=== PATIENT | male | born 1965 | race Caucasian/White ===

== ENCOUNTER → 2021-07-26 | Outpatient (CLI) | payer BC ==
[2021-07-26 16:20] LABS: African American GFR (CKD) >90 (>60 ml/min/1.73 sqM); Blood Urea Nitrogen 16 mg/dL (9-20); Non-African American GFR(CKD) >90 (>60 ml/min/1.73 sqM)
--- NOTE | 2021-07-27 08:14 | CT ---
CT adrenal glands with and without contrast HISTORY: Adrenal nodule Helical acquisition obtained pre- and postadministration of 100 cc Isovue-300 IV. Patient received or al contrast. Automated exposure control performed for dose reduction. DLP 1311 mGycentimeters No comparisons available. Adrenal glands show some mild prominence bilaterally at the upper margins. There is no discrete mass identified with certainty. No abnormal enhancement. The lung bases are clear, no pleural or pericardial effusion. Degenerative disc changes are present i n the visualized spine. There is facet arthropathy in the lower lumbar spine. The liver, gallbladder, spleen, kidneys, and pancreas are within normal limits. No retroperitoneal ad enopathy. Aorta shows normal caliber. 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 There is no ascites. No evident pneumoperitoneum. IMPRESSION: There is some mild prominence of the adrenal glands as described, comparison with old exa m could be performed to assess for any interval change if available. Alternatively short interval fol low-up could be performed to assess for stability.
== END | disposition home or self-care (01) ==
LOC: RADCTMAIN 15:07
PROVIDERS: ATTEND Urology
DX: N40.1 Benign prostatic hyperplasia with lower urinary tract symptoms (principal); E29.1 Testicular hypofunction; E27.9 Disorder of adrenal gland, unspecified
CPT/HCPCS: 83835; 84153; 82533; 82565; 84520; 84403; 74170; Q9967

== ENCOUNTER → 2022-12-15 | Outpatient (CLI) | payer BC ==
--- NOTE | 2022-12-17 21:27 | MR ---
EXAMINATION TYPE: MR lumbar spine wo con DATE OF EXAM: 12/15/2022 COMPARISON: None HISTORY: Scoliosis - Stenosis - Evaluate for Surgery CONTRAST: 0 mL intravenous Gadavist. TECHNIQUE: Multiplanar, multisequence images of the lumbar spine were acquired. FINDINGS: L5-S1: There is loss of disc axis level. Mild residual disc bulge has anterior thecal sac flattening. No AP spinal canal stenosis present. Facet hypertrophy is present on the left with severe left nelly inal stenosis. Moderate right foraminal stenosis is present. L4-L5: Broad-based disc bulge is present slightly greater into the left paracentral and left lateral direction. Facet hypertrophy is present greater on the left. Moderate to severe right and severe left foraminal stenosis is present. L3-L4: There is loss of disc height at this level. Endplate changes are present compatible with Modic type changes. Facet hypertrophy is present greater on the left. Severe right and moderate to severe left foraminal stenosis is present. L2-L3: There is loss of disc height is well. Residual disc has mild bulge slightly greater in the rig ht paracentral and central region. No AP spinal canal stenosis is present. Severe right and moderate left foraminal narrowing is present. L1-L2: There is relative reservation of the disc height to this level. Minimal disc bulge has anterio r thecal sac contact. No thecal sac flattening or spinal canal stenosis is present. Facet hypertrophy is present. Mild bilateral foraminal narrowing is present. T12-L1: No focal disc herniation or significant disc bulge. No spinal canal stenosis or significant f oraminal narrowing. Spinal cord terminates at the L1 level. No spondylolisthesis is evident. IMPRESSION: 1. Loss of disc height is present at L2-3 L3-4 and L5-S1. 2. No spinal canal stenosis. 3. Multilevel severe foraminal stenosis with most significant foraminal narrowing is present at left L5-S1, left L4-5 right L3-4 and right L2-3. 4. Multilevel facet changes including marked hypertrophy left L5-S1, left L4-5.
== END | disposition home or self-care (01) ==
LOC: RADMRIMAIN 19:24
PROVIDERS: ATTEND Physician Assistant Surgical
DX: M47.817 Spondylosis without myelopathy or radiculopathy, lumbosacral region (principal); M48.061 Spinal stenosis, lumbar region without neurogenic claudication; M41.9 Scoliosis, unspecified
CPT/HCPCS: 72148

== ENCOUNTER → 2023-06-12 | Outpatient (CLI) | payer BC ==
--- NOTE | 2023-06-12 11:09 | CT ---
EXAMINATION TYPE: CT adrenal glands wo/w con CT DLP: 922.80 mGycm, Automated exposure control for dose reduction was used. DATE OF EXAM: 06/12/2023 10:41 AM COMPARISON: CT adrenal 07/26/2021 CLINICAL INDICATION:Male, 57 years old with history of D35.00 adrenal nodule; Adrenal nodule TECHNIQUE: Standard CT of the abdomen before and after the administration of 100 cc of Isovue 300 I V contrast material and oral contrast. Coronal and sagittal reformats were performed. FINDINGS: LOWER CHEST: Unremarkable ABDOMEN LIVER: Unremarkable GALLBLADDER AND BILE DUCTS: Unremarkable. PANCREAS: Unremarkable. SPLEEN: Unremarkable. ADRENAL GLANDS: Unremarkable without discrete nodule identified. Stable appearance of prior exam. KIDNEYS AND URETERS: No evidence of hydronephrosis or renal calculus. The ureters are unremarkable. STOMACH AND BOWEL: Stomach and duodenum are unremarkable. Enteric contrast reaches the mid small elizabeth l. No focal bowel wall thickening or surrounding inflammatory changes. No evidence of bowel obstructi on. PERITONEUM: No evidence of pneumoperitoneum or free fluid. VASCULATURE: No evidence of aortic aneurysm. 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 MUSCULOSKELETAL: No acute osseous abnormalities. Postsurgical changes from fusion involving T12-S1 wi th laminectomy changes. Similar mild retrolisthesis of L2 on L3. LYMPH NODES: No gross evidence for lymphadenopathy. SOFT TISSUE/ABDOMINAL WALL: Small fat filled umbilical hernia. IMPRESSION: Unremarkable appearance of both adrenal glands without discrete nodule identified. Stable appearance from prior exam.
== END | disposition home or self-care (01) ==
LOC: RADCTMAIN 09:07
PROVIDERS: ATTEND Urology
DX: D35.00 Benign neoplasm of unspecified adrenal gland (principal)
CPT/HCPCS: 74170; Q9967